=== PATIENT | male | born 1945 ===

== ENCOUNTER 2019-08-24 14:29 | Observation (INO) | payer MEDICARE, OTHER ==
[~2019-08-24] VITALS: Ht 180.3 cm; Wt 88.3 kg
--- NOTE | 2019-08-24 14:42 | NUR ---
PT BIB EMS. PT WAS AT WORK AND FELT SWEATY AND LIGHT HEADED. HE THEN SAT DOWN IN A CHAIR AND PASSED OUT. HIS CO WORKERS CALLED 911. EMS ARRIVED AND THE PT WAS AWAKE AND ALERT WITH STABLE VS. EMS STOOD THE PT UP AND HE PASSED OUT ONCE AGAIN AND WAS SAFELY LOWERED TO THE GROUND. EMS REPORTS THE PT WAS HYPOTENSIVE AND HAD BRADYCARDIA AT THIS TIME. EMS ADMINSTERED 2 SEPERATE 0.5MG DOSES OF ATROPINE AND GAVE THE PT 4MG ZOFRAN AND 950 OF NS. SINCE ARRIVING THE PTS VITALS HAVE BEEN STABLE. PT DENIES FEELING WEEK OR DIZZY. 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 EKG COMPLETE. Addendum: 08/24/19 at 1509 [facility]
[2019-08-24 15:41] LABS: BASOPHILS # (AUTO) 0.03 x10^3/uL (0-0.1); BASOPHILS % (AUTO) 0 % (0-1); EOSINOPHILS # (AUTO) 0.09 x10^3/uL (0-0.4); EOSINOPHILS % (AUTO) 1 % (1-7); LYMPHOCYTES # (AUTO) 1.44 x10^3/uL (1-3.4); LYMPHOCYTES % (AUTO) 13 % (22-44); MD NO; MEAN CORPUSCULAR HEMOGLOBIN 30.9 pg (27.5-34.5); MEAN CORPUSCULAR HGB CONC 33.4 g/dL (33.2-36.2); MEAN CORPUSCULAR VOLUME 92.5 fL (81-97); MEAN PLATELET VOLUME 7.2 fL (7.4-10.4); MONOCYTES # (AUTO) 0.71 x10^3/uL (0.2-0.8); MONOCYTES % (AUTO) 6 % (2-9); NEUTROPHILS # (AUTO) 9.07 x10^3/uL (1.8-6.8); NEUTROPHILS % (AUTO) 80 % (42-75); PLATELET COUNT 220 x10^3/uL (130-400)
[2019-08-24 15:50] LABS: ALANINE AMINOTRANSFERASE 17 U/L (12-78); ALBUMIN 3.5 g/dL (3.4-5.0); ANION GAP 8 mmol/L (5-15); CALCIUM 8.1 mg/dL (8.5-10.1); CHLORIDE 108 mmol/L (98-107); CREATININE 1.21 mg/dL (0.7-1.3)
[2019-08-24 15:55] LABS: ALKALINE PHOSPHATASE 83 U/L (45-117); BILIRUBIN,TOTAL 1.4 mg/dL (0.2-1.0); TOTAL PROTEIN 6.9 g/dL (6.4-8.2); TROPONIN I < 0.015 ng/mL (0.000-0.045)
--- NOTE | 2019-08-24 16:23 | NUR ---
PT TBADM. MD BEDSIDE DISCUSSING PLAN OF CARE AT THIS TIME
[2019-08-24] MEDS ORDERED: ONDANSETRON 2MG/ML, 2ML IVPush PRN (17:00)
[2019-08-24] MEDS ORDERED: ACETAMINOPHEN 325 MG TABLET PO PRN (17:00)
[2019-08-24] MEDS ORDERED: ATROPINE 0.4 MG/ML, 1ML IVPush PRN (17:00)
[2019-08-24] MEDS ORDERED: ENOXAPARIN 40 MG/0.4 ML SQ SCH (17:00)
[2019-08-24] MEDS ORDERED: ONDANSETRON ODT 4 MG PO PRN (17:00)
[2019-08-24 17:23] LABS: TROPONIN I < 0.015 ng/mL (0.000-0.045)
[2019-08-24 18:24] VITALS: BP 153/78
[2019-08-24 20:32] VITALS: BP 138/68
[2019-08-24 20:34] VITALS: BP 151/73
[2019-08-24 20:36] VITALS: BP 155/69
[2019-08-24] MEDS: SODIUM CHLORIDE 0.9% 1,000 ML IV SCH (21:13)
[2019-08-24 23:15] LABS: TROPONIN I < 0.015 ng/mL (0.000-0.045)
[2019-08-25 00:57] VITALS: BP 153/81
[2019-08-25 06:43] LABS: BASOPHILS # (AUTO) 0.05 x10^3/uL (0-0.1); BASOPHILS % (AUTO) 1 % (0-1); EOSINOPHILS # (AUTO) 0.14 x10^3/uL (0-0.4); EOSINOPHILS % (AUTO) 2 % (1-7); LYMPHOCYTES # (AUTO) 2.14 x10^3/uL (1-3.4); LYMPHOCYTES % (AUTO) 24 % (22-44); MD NO; MEAN CORPUSCULAR HEMOGLOBIN 30.5 pg (27.5-34.5); MEAN CORPUSCULAR HGB CONC 32.7 g/dL (33.2-36.2); MEAN CORPUSCULAR VOLUME 93.4 fL (81-97); MEAN PLATELET VOLUME 7.3 fL (7.4-10.4); MONOCYTES # (AUTO) 0.68 x10^3/uL (0.2-0.8); MONOCYTES % (AUTO) 8 % (2-9); NEUTROPHILS # (AUTO) 6.11 x10^3/uL (1.8-6.8); NEUTROPHILS % (AUTO) 67 % (42-75); PLATELET COUNT 214 x10^3/uL (130-400); RED BLOOD COUNT 4.52 x10^6/uL (4.38-5.82); RED CELL DISTRIBUTION WIDTH 14.3 % (9.4-14.8)
[2019-08-25 06:52] LABS: ANION GAP 5 mmol/L (5-15); CALCIUM 8.5 mg/dL (8.5-10.1); CHLORIDE 110 mmol/L (98-107); CREATININE 1.09 mg/dL (0.7-1.3)
[2019-08-25 08:31] VITALS: BP 164/80
[2019-08-25 08:32] VITALS: BP 155/73
[2019-08-25 08:38] VITALS: BP 174/75
[2019-08-25] MEDS ORDERED: METO25TA4 MT (08:42)
[2019-08-25] MEDS ORDERED: LOSA50TA14 PO (08:42)
[2019-08-25] MEDS ORDERED: ASPI81TA45 PO (08:42)
[2019-08-25] MEDS ORDERED: TAMS-11 PO (08:42)
[2019-08-25] MEDS ORDERED: ATOR40TA78 PO (08:42)
[2019-08-25] MEDS: SODIUM CHLORIDE 0.9% 1,000 ML IV SCH (13:40)
[2019-08-25 13:45] VITALS: BP 160/78
== END 2019-08-25 15:05 | disposition home or self-care (01) ==
LOC: ED 16:13 → EDIP 16:14 → INTOOBSV 16:14 → ED 16:18 → 4WST 18:10 → DCLOUNGE 08-25 14:54
PROVIDERS: ADMIT Internal Medicine; ATTEND Hospitalist
DX: R55 Syncope and collapse (principal); R00.1 Bradycardia, unspecified; R79.89 Other specified abnormal findings of blood chemistry; G47.00 Insomnia, unspecified; N40.0 Benign prostatic hyperplasia without lower urinary tract symptoms; I48.0 Paroxysmal atrial fibrillation; I10 Essential (primary) hypertension; G20 Parkinson's disease; Z79.82 Long term (current) use of aspirin; Z79.899 Other long term (current) drug therapy
CPT/HCPCS: 36415; 71046; 80048; 80053; 83735; 84484; 85025; 93005; 93306; 96360; 96361; 96372; 99285; G0378; J1650; J7030